=== PATIENT | male | born 1990 | race Caucasian/White ===

== ENCOUNTER 2018-08-18 13:10 | Emergency (ER) | payer OTHER ==
[~2018-08-18] VITALS: Ht 193 cm; Wt 48.6 kg
[2018-08-18] MEDS ORDERED: AMOXICILLIN875 MG PO (14:11)
[2018-08-18 14:21] VITALS: BP 142/107
== END 2018-08-18 14:32 | disposition home or self-care (01) | DRG 153 ==
LOC: ED 13:10
DX: J02.0 Streptococcal pharyngitis (principal); R50.9 Fever, unspecified; R05 Cough; R09.81 Nasal congestion; R51 Headache